=== PATIENT | male | born 1945 | race African-American/Black ===

== ENCOUNTER 2022-04-05 23:20 | Emergency (ER) | payer OTHER, MEDICAID ==
[~2022-04-05] VITALS: Ht 185.4 cm; Wt 85.0 kg
[2022-04-06 00:43] LABS: BASOPHILS % 0.5 % (0.0-2.0); CHLORIDE 99 mEq/L (98-107); EOSINOPHILS % 3.4 % (0.0-5.0); HEMOGLOBIN. 11.1 g/dL (14.0-18.0); LYMPHOCYTES % 9.8 % (20.0-50.0); MEAN CORPUSCULAR HEMOGLOBIN 27.4 pg (28.0-32.0); MEAN CORPUSCULAR VOLUME 84.3 fL (80.0-94.0); MEAN PLATELET VOLUME 7.7 fl (7.4-10.4); MONOCYTES % 5.4 % (2.0-8.0); NEUTROPHILS % 80.9 % (40.0-76.0); PLATELET 227 x1000/uL (130-400); RED BLOOD CELL COUNT 4.03 mill/uL (4.7-6.1); RED CELL DISTRIBUTION WIDTH 15.3 % (11.6-14.6)
[2022-04-06 00:55] LABS: ETHANOL BLOOD < 10 mg/dL
[2022-04-06] MEDS ORDERED: ASPIRIN 325MG EC TABLET PO ONE (02:30)
[2022-04-06 11:52] VITALS: BP 178/77
== END 2022-04-06 12:34 | disposition short-term general hospital (02) ==
LOC: ER 23:31
DX: R42 Dizziness and giddiness (principal); R77.8 Other specified abnormalities of plasma proteins; I12.0 Hypertensive chronic kidney disease with stage 5 chronic kidney disease or end stage renal disease; N18.6 End stage renal disease; E11.22 Type 2 diabetes mellitus with diabetic chronic kidney disease; Z99.2 Dependence on renal dialysis; Z79.84 Long term (current) use of oral hypoglycemic drugs; Z86.73 Personal history of transient ischemic attack (TIA), and cerebral infarction without residual deficits; Z79.899 Other long term (current) drug therapy
CPT/HCPCS: 36415; 71045; 80053; 80320; 83605; 83880; 84484; 85025; 93005; 99285; G0480